=== PATIENT | female | born 1955 | race Caucasian/White ===

== ENCOUNTER 2018-04-12 16:47 | Emergency (ER) | payer BC, MEDICARE ==
[~2018-04-12] VITALS: Ht 170.2 cm; Wt 72.5 kg
[~2018-04-12 16:47] MED LIST: AMOX500T PO; ZITH500T PO
--- NOTE | 2018-04-12 16:59 | PD ---
HPI Chief Complaint: Left hand pain Time Seen by Provider: 16:56 Travel History International Travel<30 days: No Contact w/Intl Traveler<30days: No History of Present Illness HPI Patient comes emergency department for evaluation of left hand stingray injury that occurred shortly prior to arrival. Patient reports she was trying to help get a stingray off a fishing hook when it is tail went back and stung in the left hand. Patient reports applying ice to this prior to coming to the emergency department momentarily improved pain got worse. Reports burning sensation around site of penetration without radiation. Patient reports last tetanus shot was 5 or 6 years ago. Pain is worse palpation. PFSH Past Medical History Blood Disorders: No Anxiety: Yes (XANAX PRN) Cancer: No Cardiac Catheterization: Yes Cardiovascular Problems: No Endocrine: No Fibromyalgia: Yes GERD: Yes (IMPROVED) Genitourinary: No Immune Disorder: No Musculoskeletal: No Neurologic: No Reproductive: No Respiratory: No Migraines: Yes (HISTORY) Sleep Apnea: Yes (NEED TESTING PER PT) Ulcer: Yes (IMPROVED) Past Surgical History Abdominal Surgery: Yes (EXPLORATORY LAP- FLOATING KIDNEY) Section: Yes Gynecologic Surgery: Yes (C SECTION X 3 / BREAST BIOPSY) Other Surgery: Yes (AUGMENTATION AND REMOVAL) Social History Alcohol Use: Yes (SOCIAL) Tobacco Use: Yes (1 PK/MONTH FOR 1 YEAR) Substance Use: No Allergies-Medications (Allergen,Severity, Reaction): Coded Allergies: azithromycin (Unverified Allergy, Severe, HIVES, 06/17/17) codeine (Unverified Allergy, Severe, VOMIT, 06/17/17) erythromycin base (Unverified Allergy, Severe, HIVES, 06/17/17) Reported Meds & Prescriptions Reported Meds & Active Scripts Active Keflex (Cephalexin) 500 Mg Cap 500 Mg PO Q12H 10 Days Doxycycline Hyclate 100 Mg Cap 100 Mg PO BID Reported Aspirin 81 Mg Chew 81 Mg CHEW DIRECTED Review of Systems Except as stated in HPI: all other systems reviewed are Neg Physical Exam Narrative GENERAL: Well-developed, well nourished, in no acute distress, and non-ill appearing. SKIN: Small puncture wound over the dorsal aspect of left hand. Small amount of bleeding noted. No crepitus or foreign body noted. Minimal tenderness to palpation. Neurovascular intact distally. HEAD: Atraumatic. Normocephalic. EYES: Pupils equal and round. EOMI. No scleral icterus. No injection or drainage. ENT: No nasal bleeding or discharge. Mucous membranes pink and moist. NECK: Trachea midline. Supple. No nuclear rigidity. CARDIOVASCULAR: Radial pulses 2+, intact, and equal bilaterally. Capillary refill less than 2 seconds. RESPIRATORY: No accessory muscle use. No respiratory distress. MUSCULOSKELETAL: No obvious deformities. No clubbing. No cyanosis. No edema. Full range of motion. Wrist: FROM and equal BL with passive flexion, extension , and pronation/supination. Capillary refill less than 2 seconds distal to injury and equal BL. FROM distal to injury and equal BL. Strength distal to injury equal BL. NV intact distal to injury. Flexion and extension of thumb equal BL. Equal strength and movement with abduction/adductions of BL fingers. Acute Care Clinical Nurse Specialist strength equal BL. No tenderness to the anatomical snuffbox. NEUROLOGICAL: Awake and alert. No obvious cranial nerve deficits. Motor grossly within normal limits. Normal speech. PSYCHIATRIC: Appropriate mood and affect; insight and judgment normal. Data Data Last Documented VS Vital Signs Date Time Temp Pulse Resp B/P (MAP) Pulse Ox O2 Delivery O2 Flow Rate FiO2 04/12/18 18:31 158/60 (92) 04/12/18 17:33 71 18 98 Room Air 04/12/18 17:03 97.8 Orders Orders Ibuprofen (Motrin) (04/12/18 17:15) Tetanus/Diphtheria Tox Adult (Tetanus/Di (04/12/18 17:15) Hand, Complete ([id number]) (04/12/18 ) Ed Discharge Order (04/12/18 18:05) [facility] Medical Decision Making Medical Screen Exam Complete: Yes Emergency Medical Condition: Yes Interpretation(s) Last Impressions Hand X-Ray 04/12/18 0000 Signed Impressions: CONCLUSION: Soft tissue swelling on the dorsum of the hand. No acute bony abnormality. No r adiopaque foreign body. Differential Diagnosis Puncture wound, retained foreign body, fracture Narrative Course The patient suffered stingray injury to the left hand. There was no evidence to suggest foreign bodies. Visual, tactile and radiographic exams were unremarkable without evidence of foreign body at this time. There was no evidence of neurovascular injury. The patient had a normal distal vascular exam , and had full normal motor and sensory exams. There was also no evidence or tendon injury, with normal distal full range of motions, flexion, extension, abduction, adduction and opponens. There was no evidence of local joint space involvement at this time. The patient was soaked in hot water, which alleviated her symptoms. The patient was given signs and symptom warnings for infection, such as increasing pain, redness, swelling, associated heat, pus or fever. The patient was warned of possible unseen foreign body and instructed to return immediately if signs or symptoms develop. The patient was given instructions for timely follow up. The patient agreed with plan of care. Up-to-date was reviewed current recommendations for stingray wounds with antibiotics prophylactically are Keflex with doxycycline if seawater exposure. Patient in no obvious distress upon re-evaluation. All pertinent Radiology result(s) discussed with patient. Patient was asked if they wanted to speak to my attending, which the patient did not wish to do at this time. Any questions/ concerns in reference to patient diagnosis/condition discussed and clarified prior to patient's discharge. Reinforced sheer importance of close follow up with patient's primary physician or primary care clinic and/or hand surgeon. Instructed patient to return to ED immediately, if symptoms return/worsen. Patient showed understanding of above instructions. Further instructions and recommendations were detailed in discharge paperwork. Patient ambulated without difficulty out of ED at discharge. Diagnosis Primary Impression: Contact with stingray as cause of accidental injury Referrals: Tai Gilbert MD Patient Instructions: General Instructions, Marine Animal Bite or Sting (ED) Additional Instructions: Follow-up with your primary care physician and/or hand surgeon this week for reevaluation. Take all medication as prescribed. Use [id number] Tylenol and/or ibuprofen as needed for pain. Follow instructions on the packaging. Return to the emergency department if symptoms get worse. Med/Other Pt SpecificInfo: Prescription(s) given Scripts Cephalexin (Keflex) 500 Mg Cap 500 MG PO Q12H for Infection for 10 Days, #20 CAP 0 Refills Prov: Rober Aguirre MD 04/12/18 Doxycycline Hyclate (Doxycycline Hyclate) 100 Mg Cap 100 MG PO BID for Infection, #20 CAP 0 Refills Prov: Rober Aguirre MD 04/12/18 Disposition: 01 DISCHARGE HOME Condition: Stable Francisco Oliver Apr 12, 2018 16:59
[2018-04-12 17:03] VITALS: BP 184/102; PULSE 78; RESP 18; TEMP 97.8; O2SAT 100
[2018-04-12] MEDS: IBUPROFEN 800 MG TAB PO ONE ×2 (17:15→17:28)
[2018-04-12] MEDS ORDERED: TETANUS/DIPHTHERIA TOXOID ADULT 0.5 ML VIAL IM ONE (17:15)
[2018-04-12 17:33] VITALS: BP 163/80; PULSE 71; RESP 18; O2SAT 98
[2018-04-12] MEDS ORDERED: ASPI-516 CHEW (17:35)
--- NOTE | 2018-04-12 17:55 | RADRPT ---
EXAM DATE: 04/12/2018 5:44 PM EDT AGE/SEX: 62 years / Female INDICATIONS: Possible foreign body posterior hand. Stingray faby. CLINICAL DATA: This is the patient's initial encounter. Patient reports that signs and symptoms have been present for 1 day and indicates a pain score of 8/10. MEDICAL/SURGICAL HISTORY: None. None. COMPARISON: No prior exams available for comparison. FINDINGS: Bony structures are intact and in normal alignment. Osseous density is normal. There is soft tissue s welling on the dorsum of the hand. No radiopaque foreign bodies seen. CONCLUSION: Soft tissue swelling on the dorsum of the hand. No acute bony abnormality. No radiopaque foreign body . Electronically signed by: Héctor Girard MD 04/12/2018 5:53 PM EDT
[2018-04-12] MEDS ORDERED: CEPH-460 PO (17:58)
[2018-04-12] MEDS ORDERED: DOXY100C PO (17:58)
[2018-04-12 18:31] VITALS: BP 158/60
== END 2018-04-12 18:33 | disposition home or self-care (01) ==
LOC: PHEFT 16:47
DX: S61.452A Open bite of left hand, initial encounter (principal); F41.9 Anxiety disorder, unspecified; M79.7 Fibromyalgia; K21.9 Gastro-esophageal reflux disease without esophagitis; G47.30 Sleep apnea, unspecified; F17.200 Nicotine dependence, unspecified, uncomplicated; W56.81XA Bitten by other nonvenomous marine animals, initial encounter; Z88.5 Allergy status to narcotic agent; Z88.1 Allergy status to other antibiotic agents; Z79.82 Long term (current) use of aspirin; Z79.899 Other long term (current) drug therapy; Z23 Encounter for immunization
CPT/HCPCS: 73130; 90471; 90714